=== PATIENT | female | born 1945 | race Caucasian/White ===

== ENCOUNTER 2018-05-09 06:50 | Inpatient (IN) | payer MEDICARE, OTHER ==
[2018-05-09] MEDS: ACETAMINOPHEN 500 MG TAB PO (07:00)
[2018-05-09] MEDS: TRANEXAMIC ACID 1000 MG IVPB ×2 (07:00→10:00)
[2018-05-09] MEDS: DEXTROSE IVPB ×2 (07:00→10:00)
[2018-05-09] MEDS: DEXAMETHASONE 4 MG/ML 1 ML INJ IV (07:34)
[2018-05-09] MEDS: LACTATED RINGER'S 1,000 ML IV (07:36)
[2018-05-09] MEDS: ACETAMINOPHEN 1000MG/100ML IV 100 ML IVPB (07:39)
[2018-05-09] MEDS ORDERED: LIDOCAINE 1% (MDV) 20 ML INJ (08:53)
[2018-05-09] MEDS ORDERED: PROPOFOL 20 ML (08:53)
[2018-05-09] MEDS ORDERED: FENTAnyl 50 MCG/ML VIAL (08:53)
[2018-05-09] MEDS ORDERED: ETOMIDATE 20 MG INJ (08:53)
[2018-05-09] MEDS ORDERED: MIDAZOLAM 1 MG/ML 2 ML INJ (08:53)
[2018-05-09] MEDS ORDERED: FAMOTIDINE 20 MG INJ (09:19)
[2018-05-09] MEDS ORDERED: ONDANSETRON 4 MG INJ (09:19)
[2018-05-09] MEDS ORDERED: DEXAMETHASONE 4 MG/ML 1 ML INJ ×2 (09:19→10:32)
[2018-05-09] MEDS ORDERED: CEFAZOLIN 1 GM INJ (09:21)
[2018-05-09] MEDS: SOD CHLORIDE 0.9% 1,000 ML IV ×3 (09:35→22:05)
[2018-05-09] MEDS: BACITRACIN 50000 UNITS INJ (09:48)
[2018-05-09] MEDS: POLYMYXIN B 500000 UNIT INJ (09:48)
[2018-05-09] MEDS ORDERED: oxyCODONE 5 MG TAB PO (10:00)
[2018-05-09] MEDS: ASPIRIN (EC) 325 MG TAB PO (10:00)
[2018-05-09] MEDS ORDERED: SENNA/DOCUSATE NA (8.6MG/50MG) TAB PO (10:00)
[2018-05-09] MEDS: DOCUSATE SODIUM 100 MG CAP PO (10:00)
[2018-05-09] MEDS ORDERED: NACL 0.9% 3 ML SYG IV (10:00)
[2018-05-09] MEDS ORDERED: NALOXONE (0.4 MG/ML) INJ IV (10:00)
[2018-05-09] MEDS ORDERED: DIPHENHYDRAMINE 50 MG INJ IV (10:00)
[2018-05-09] MEDS ORDERED: BISACODYL 10 MG SUPP PR (10:00)
[2018-05-09] MEDS ORDERED: BETHANECHOL 25 MG TAB PO (10:00)
[2018-05-09] MEDS ORDERED: MAGNESIUM HYDROXIDE 30ML CUP PO (10:00)
[2018-05-09] MEDS ORDERED: NA PHOSPHATE/BIPHOS 133 ML ENEMA PR (10:00)
[2018-05-09] MEDS ORDERED: ROPIVACAINE 0.5 % 30 ML VIAL (10:32)
[2018-05-09] MEDS ORDERED: ONDANSETRON 4 MG INJ IV ×2 (11:30→14:30)
[2018-05-09] MEDS ORDERED: HYDROmorphONE 1 MG/5 ML IV SYRINGE IV ×2 (11:30)
[2018-05-09] MEDS: GABAPENTIN 100 MG CAP PO ×2 (13:47→21:29)
[2018-05-09] MEDS ORDERED: ALBUTEROL/IPRATROPIUM (NEB) 3 ML AMP HHN (14:30)
[2018-05-09] MEDS: oxyCODONE 5 MG TAB PO (16:41)
[2018-05-09] MEDS: VANCOMYCIN 1 GM (PMX) 250 ML IVPB (18:55)
[2018-05-09] MEDS: FISH OIL 1,000 MG CAP PO (21:00)
[2018-05-09] MEDS: ATORVASTATIN 10 MG TAB PO (21:29)
[2018-05-09] MEDS: MONTELUKAST 10 MG TAB PO (21:30)
[2018-05-09] MEDS: ACETAMINOPHEN 325 MG TAB PO (21:39)
[2018-05-10] MEDS: oxyCODONE 5 MG TAB PO ×4 (04:57→21:00)
[2018-05-10] MEDS: ACETAMINOPHEN 325 MG TAB PO (05:00)
[2018-05-10 05:42] LABS: ADD MAN DIFF? NO
[2018-05-10 05:44] LABS: BASOPHILS % 0.1 % (0.0-2.0); EOSINOPHILS % 0.1 % (0.0-7.0); HEMATOCRIT 36.3 % (37.0-47.0); HEMOGLOBIN 11.7 g/dl (12.0-16.0); LYMPHOCYTES # 1.1 10^3/ul (0.8-2.9); LYMPHOCYTES % 7.9 % (15.0-51.0); MEAN CORPUSCULAR HEMOGLOBIN 29.3 pg (29.0-33.0); MEAN CORPUSCULAR HGB CONC 32.2 g/dl (32.0-37.0); MEAN CORPUSCULAR VOLUME 90.8 fl (82.0-101.0); MEAN PLATELET VOLUME 10.8 fl (7.4-10.4); MONOCYTE # 0.7 10^3/ul (0.3-0.9); MONOCYTES % 4.8 % (0.0-11.0); NEUTROPHIL # 12.1 10^3/ul (1.6-7.5); NEUTROPHILS % 86.7 % (39.0-77.0); PLATELET COUNT 224 10^3/UL (140-415); RED CELL DISTRIBUTION WIDTH 12.6 % (11.5-14.5)
[2018-05-10 06:04] LABS: HEMOGLOBIN A1C 5.1 % (0-5.9)
[2018-05-10 06:13] LABS: ANION GAP 7 (5-13); BLOOD UREA NITROGEN 22 mg/dl (7-20); CALCIUM 9.3 mg/dl (8.4-10.2); CARBON DIOXIDE 26 mmol/L (21-31); CHLORIDE 107 mmol/L (97-110); CREATININE 0.63 mg/dl (0.44-1.00); Estimated GFR > 60 mL/min (>60); GLUCOSE 125 mg/dl (70-220); POTASSIUM 4.1 mmol/L (3.5-5.1); SODIUM 140 mmol/L (135-144)
[2018-05-10 06:18] LABS: CHOLESTEROL 131 mg/dl (100-200)
[2018-05-10 06:18] LABS: CHOL/HDL RATIO 2.2 RATIO; HDL CHOLESTEROL 59 mg/dl (33-92); LDL CHOLESTEROL,CALCULATED 57 mg/dl; TRIGLYCERIDES 74 mg/dl (0-149)
[2018-05-10] MEDS: VANCOMYCIN 1 GM (PMX) 250 ML IVPB (06:29)
[2018-05-10] MEDS: FISH OIL 1,000 MG CAP PO ×2 (09:00→20:55)
[2018-05-10] MEDS: FLUTICASONE/VILANTEROL 100-25 INH (09:00)
[2018-05-10] MEDS: ASPIRIN (EC) 325 MG TAB PO (09:03)
[2018-05-10] MEDS: DOCUSATE SODIUM 100 MG CAP PO ×2 (09:03→20:55)
[2018-05-10] MEDS: GABAPENTIN 100 MG CAP PO ×3 (09:04→21:58)
[2018-05-10] MEDS: CELECOXIB 100 MG CAP PO ×2 (09:04→20:54)
[2018-05-10] MEDS ORDERED: ONDANSETRON 4 MG INJ IV (10:00)
[2018-05-10] MEDS: ATORVASTATIN 10 MG TAB PO (20:55)
[2018-05-10] MEDS: MONTELUKAST 10 MG TAB PO (21:58)
[2018-05-11] MEDS: oxyCODONE 5 MG TAB PO ×2 (02:20→07:46)
[2018-05-11 05:28] LABS: ADD MAN DIFF? NO
[2018-05-11 05:37] LABS: WHITE BLOOD COUNT 9.8 10^3/ul (4.8-10.8)
[2018-05-11 05:37] LABS: BASOPHILS % 0.4 % (0.0-2.0); EOSINOPHILS # 0.3 10^3/ul (0.0-0.5); HEMATOCRIT 38.8 % (37.0-47.0); HEMOGLOBIN 12.1 g/dl (12.0-16.0); LYMPHOCYTES # 3.1 10^3/ul (0.8-2.9); LYMPHOCYTES % 31.7 % (15.0-51.0); MEAN CORPUSCULAR HEMOGLOBIN 28.7 pg (29.0-33.0); MEAN CORPUSCULAR HGB CONC 31.2 g/dl (32.0-37.0); MEAN CORPUSCULAR VOLUME 91.9 fl (82.0-101.0); MEAN PLATELET VOLUME 10.7 fl (7.4-10.4); MONOCYTE # 0.6 10^3/ul (0.3-0.9); MONOCYTES % 5.7 % (0.0-11.0); NEUTROPHIL # 5.8 10^3/ul (1.6-7.5); NEUTROPHILS % 58.9 % (39.0-77.0); PLATELET COUNT 225 10^3/UL (140-415); RED BLOOD COUNT 4.22 10^6/ul (4.20-5.40); RED CELL DISTRIBUTION WIDTH 13.1 % (11.5-14.5)
[2018-05-11 06:12] LABS: ANION GAP 9 (5-13); BLOOD UREA NITROGEN 20 mg/dl (7-20); CALCIUM 9.1 mg/dl (8.4-10.2); CARBON DIOXIDE 28 mmol/L (21-31); CHLORIDE 106 mmol/L (97-110); CREATININE 0.68 mg/dl (0.44-1.00); Estimated GFR > 60 mL/min (>60); GLUCOSE 92 mg/dl (70-220); POTASSIUM 4.6 mmol/L (3.5-5.1); SODIUM 143 mmol/L (135-144)
[2018-05-11] MEDS: PANTOPRAZOLE (EC) 40 MG TAB PO (06:23)
[2018-05-11] MEDS: FLUTICASONE/VILANTEROL 100-25 INH ×2 (09:00→09:47)
[2018-05-11] MEDS: FISH OIL 1,000 MG CAP PO ×2 (09:00→09:47)
[2018-05-11] MEDS: GABAPENTIN 100 MG CAP PO ×2 (09:47→12:23)
[2018-05-11] MEDS: DOCUSATE SODIUM 100 MG CAP PO (09:47)
[2018-05-11] MEDS: ASPIRIN (EC) 325 MG TAB PO (09:47)
[2018-05-11] MEDS: CELECOXIB 100 MG CAP PO (09:48)
== END 2018-05-11 12:35 | DRG 470 ==
LOC: SDS 06:50 → REC 09:35 → MS1 12:35
PROC: 0SRC0J9 Replacement of Right Knee Joint with Synthetic Substitute, Cemented, Open Approach (ICD-10-PCS; principal; 2018-05-09 08:30)
DX: M17.11 Unilateral primary osteoarthritis, right knee (principal); E78.5 Hyperlipidemia, unspecified; J45.909 Unspecified asthma, uncomplicated; E66.9 Obesity, unspecified; Z68.30 Body mass index [BMI] 30.0-30.9, adult
CPT/HCPCS: 73560; 80048; 80061; 83036; 85025; 86850; 86900; 86901; 87081; 88304; 88311; 97116; 97161; 97167; 97530